=== PATIENT | male | born 1960 | race Caucasian/White ===

== ENCOUNTER → 2016-03-24 | Outpatient (CLI) | payer OTHER ==
--- NOTE | 2016-03-24 18:20 | DX ---
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 There is small degenerative cys t formation in each lateral acetabulum. The hip joint cartilage spaces are symmetric and normal. Left femoral head remains well rounded. There is no evidence for an acute femoral neck fracture. The pelv is is normally mineralized. There are bilateral vasectomy clips present. 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 Consider MRI wit hout contrast for further evaluation. A Follow-Up Required test result has been communicated via the [facility] | Critical Result syst em on 03/24/2016 18:18, Message ID [id number]."
== END ==
LOC: FIMAGING 10:24
PROVIDERS: ATTEND Orthopaedic Surgery Orthopaedic Surgery of the Spine
DX: M25.551 Pain in right hip (principal); M25.552 Pain in left hip